=== PATIENT | male | born 1995 | race Caucasian/White ===

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

== ENCOUNTER 2017-02-23 16:50 | Emergency (ER) | payer SELFPAY ==
[~2017-02-23] VITALS: Ht 182.9 cm; Wt 78.6 kg
[~2017-02-23 16:50] MED LIST changes: +FLUO20CA19 PO
[2017-02-23] MEDS ORDERED: AZIT500T2 PO (17:11)
[2017-02-23 18:52] VITALS: BP 136/73
== END 2017-02-23 19:29 | disposition home or self-care (01) ==
LOC: M ED 16:50
DX: Z20.2 Contact with and (suspected) exposure to infections with a predominantly sexual mode of transmission (principal); A56.8 Sexually transmitted chlamydial infection of other sites; F17.200 Nicotine dependence, unspecified, uncomplicated; Z83.49 Family history of other endocrine, nutritional and metabolic diseases; Z82.49 Family history of ischemic heart disease and other diseases of the circulatory system